=== PATIENT | female | born 1995 | race Caucasian/White ===

== ENCOUNTER 2019-06-07 03:05 | Inpatient (IN) | payer MEDICAID, SELFPAY | END 2019-06-08 12:35 | disposition home or self-care (01) | DRG 806 | PROVIDERS: Admitting Provider Obstetrics & Gynecology; Family Provider Nurse Practitioner Family; Visit Provider Obstetrics & Gynecology | DX: O34.211 Maternal care for low transverse scar from previous cesarean delivery (principal); O36.0930 Maternal care for other rhesus isoimmunization, third trimester, not applicable or unspecified; Z37.0 Single live birth; Z3A.38 38 weeks gestation of pregnancy; O99.334 Smoking (tobacco) complicating childbirth; F17.210 Nicotine dependence, cigarettes, uncomplicated; O69.2XX0 Labor and delivery complicated by other cord entanglement, with compression, not applicable or unspecified; O70.0 First degree perineal laceration during delivery ==

== ENCOUNTER → 2019-07-25 13:14 | Outpatient (BNVA) | payer MEDICAID, SELFPAY | PROVIDERS: Visit Provider Nurse Practitioner Women's Health | DX: Z30.430 Encounter for insertion of intrauterine contraceptive device (principal); Z30.9 Encounter for contraceptive management, unspecified | CPT/HCPCS: 81025 ==

== ENCOUNTER → 2020-05-07 14:15 | Outpatient (BNVA) | payer MEDICAID, SELFPAY | PROVIDERS: Visit Provider Nurse Practitioner | DX: Z30.431 Encounter for routine checking of intrauterine contraceptive device (principal); R30.9 Painful micturition, unspecified; R10.2 Pelvic and perineal pain | CPT/HCPCS: 81000; 81025 ==

== ENCOUNTER → 2020-08-09 13:52 | Outpatient (BNVA) | payer MEDICAID, SELFPAY | PROVIDERS: Visit Provider Obstetrics & Gynecology | DX: Z11.3 Encounter for screening for infections with a predominantly sexual mode of transmission (principal); Z34.90 Encounter for supervision of normal pregnancy, unspecified, unspecified trimester; R53.83 Other fatigue; Z48.816 Encounter for surgical aftercare following surgery on the genitourinary system | CPT/HCPCS: 84443; 86592; 86803; 87340; 87491; 87591; 87806 ==

== ENCOUNTER → 2020-12-27 15:52 | Outpatient (BNVA) | payer MEDICAID, SELFPAY | PROVIDERS: Visit Provider Nurse Practitioner Family | DX: Z20.822 Contact with and (suspected) exposure to COVID-19 (principal) | CPT/HCPCS: 87635 ==

== ENCOUNTER → 2021-01-25 18:18 | Outpatient (BNVA) | payer MEDICAID, SELFPAY | PROVIDERS: Visit Provider Registered Nurse Neonatal Intensive Care | DX: Z34.90 Encounter for supervision of normal pregnancy, unspecified, unspecified trimester (principal) | CPT/HCPCS: 81025 ==

== ENCOUNTER → 2021-09-14 15:00 | Outpatient (BNVA) | payer MEDICAID, SELFPAY | PROVIDERS: Visit Provider Obstetrics & Gynecology | DX: Z12.4 Encounter for screening for malignant neoplasm of cervix (principal); N64.52 Nipple discharge; N93.9 Abnormal uterine and vaginal bleeding, unspecified | CPT/HCPCS: 84146; 84443; 85027; 88104; 88175 ==

== ENCOUNTER 2021-09-21 12:33 | Outpatient (CLI) | payer MEDICAID, SELFPAY ==
--- NOTE | 2021-09-21 12:38 | US_ITS ---
WS: [id number] ULTRASOUND BILATERAL BREAST, complete HISTORY: N64.52 - Nipple discharge, clear white discharge. COMPARISON: None available. TECHNIQUE: 2-D and Doppler. Ultrasound is performed of each breast in all 4 quadrants. No masses or distortion is identified. The re is mild dense fibroglandular tissue. There is a small benign cyst at 9:00 in the LEFT breast with a maximum diameter of 5 mm. Small cyst RIGHT breast at the areola with a maximum diameter 3 mm. There are very minimally prominent ducts near the areola. No mass or ectasia or nodule within the ducts. US/US breast BI complete [id number] IMPRESSION: BI-RADS: 2-Benign FOLLOW-UP: See Report Bilateral breast ultrasound demonstrated no abnormality.
== END 2021-09-21 12:34 | disposition home or self-care (01) ==
LOC: RAD 12:35
PROVIDERS: Visit Provider Obstetrics & Gynecology
DX: N64.52 Nipple discharge (principal)
CPT/HCPCS: 76641

== ENCOUNTER → 2021-10-05 10:49 | Outpatient (BNVA) | payer MEDICAID, SELFPAY | PROVIDERS: Visit Provider Obstetrics & Gynecology | DX: N94.10 Unspecified dyspareunia (principal); N85.2 Hypertrophy of uterus; N85.4 Malposition of uterus; Z97.5 Presence of (intrauterine) contraceptive device | CPT/HCPCS: 76830 ==

== ENCOUNTER 2022-03-01 10:19 | Outpatient (CLI) | payer MEDICAID, SELFPAY ==
--- NOTE | 2022-03-01 10:23 | US_ITS ---
WS: [id number] TRANSABDOMINAL PELVIC AND TRANSVAGINAL PELVIC ULTRASOUND HISTORY: PELVIC PAIN COMPARISON: 10/05/2021 Uterus: 8.2 cm x 5.1 cm x 3.5 cm. Normal size anteverted uterus. No fibroid or mass. Endometrium: 0.4 cm. Normal size endometrium. IUD is present in satisfactory position. Strings are no bernard along the cervical canal. Right ovary: 3.5 cm x 2.5 cm x 2.4 cm. Normal size ovary. Normal vascularity. There are several small follicles but no solid mass. Left ovary: 3.9 cm x 2.8 cm x 1.7 cm. Normal size ovary. Ovary is only seen transabdominally. Small f ollicles. Normal vascularity. No free fluid. US/US pelvic with transvaginal IMPRESSION: 1. Normal position of the IUD. 2. Normal pelvic ultrasound. No abnormality identified.
== END 2022-03-01 10:20 | disposition home or self-care (01) ==
LOC: RAD 10:20
PROVIDERS: Visit Provider Nurse Practitioner Family
DX: R10.2 Pelvic and perineal pain (principal)
CPT/HCPCS: 76830; 76856

== ENCOUNTER → 2022-05-03 16:11 | Outpatient (BNVA) | payer MEDICAID, SELFPAY | PROVIDERS: Visit Provider Nurse Practitioner Family | DX: S69.92XA Unspecified injury of left wrist, hand and finger(s), initial encounter (principal); W19.XXXA Unspecified fall, initial encounter; Y93.51 Activity, roller skating (inline) and skateboarding | CPT/HCPCS: 73110 ==

== ENCOUNTER → 2023-01-29 15:38 | Outpatient (BNVA) | payer MEDICAID, SELFPAY | PROVIDERS: Visit Provider Nurse Practitioner Women's Health | DX: Z30.431 Encounter for routine checking of intrauterine contraceptive device (principal); R10.2 Pelvic and perineal pain | CPT/HCPCS: 76830 ==

== ENCOUNTER 2023-07-22 21:58 | Emergency (ER) | payer MEDICAID, SELFPAY ==
[2023-07-22 21:59] VITALS: BP 120/80; PULSE 84; RESP 16; TEMP 36.5; O2SAT 95; BMI 28.3
--- NOTE | 2023-07-22 22:16 | W.ED.ABDPA2 ---
HPI - Abdominal Pain General: Chief Complaint: Abdominal Pain Stated Complaint: Abd Pain Spread to Back and Chest Time Seen by Provider: 07/22/23 22:13 History of Present Illness: 27-year-old female comes in today with sharp abdominal pain radiating up into her chest that started this evening after eating with her reported fluid were getting ready to leave his mother's house. Patient reports that she has had problems with her abdomen on and off for about 1 year now. Patient has had 2 C-sections for delivery. Patient denies any other abdominal surgeries. Patient denies any chronic medical problems. Patient does have a 8-year implant for control. Patient appears nontoxic. Patient appears well. Review of Systems General: Reports: 10 or more systems reviewed and unremarkable except in HPI and below PFSH ED PFSH: Medical History (Updated 07/22/23 @ 23:05 by LESLY Hare) No pertinent past medical history Denies diabetes, asthma, hypertension, seizures, DVT/PE PCP: Lianne GRACE Surgical History H/O section (06/07/19) 1-----> primary low transverse delivery for breech presentation status post failed external cephalic version. No immediate postoperative complications. Done by Dr Barber at [facility] [place]. Low transverse uterine incision with single layer closure and no extension. Operative report has been scanned Family History Father Diabetes Cancer lung and bone Grandmother Ovarian cancer paternal, diagnosed in her 40s Sister Thyroid condition Mother Uterine cancer Uterine cancer in her mother is in her early 50s. Did receive chemotherapy and radiation. Denies family history of Colon cancer Heart disease Hyperlipidemia Breast cancer Hypertension Stroke Social History Smoking and tobacco/nicotine status: current every day tobacco/nicotine user cigarettes Packs smoked per day: 0.5 Years cigarettes smoked: 8 Second hand smoke exposure: No Alcohol intake: unknown Substance/Drug Use: unknown Physical Exam Const: COMMON NORMALS: alert HENMT: COMMON NORMALS: normocephalic HEAD & SCALP: normocephalic Neck/C-Spine: COMMON NORMALS: full ROM Chest: COMMONS NORMALS: normal inspection of the chest Resp: COMMON NORMALS: normal respiratory effort Cardio: COMMON NORMALS: regular rate and regular rhythm RATE: regular rate RHYTHM: regular rhythm GI: COMMON NORMALS: Soft to palpation PALPATION: Yes Soft to palpation, Yes Tenderness to palpation present (GI) (Nonlocalized) and No Guarding due to palpation present (GI) Extremity: COMMON NORMALS: full ROM Neuro: SENSORIUM/ORIENTATION: Yes alert Skin: COMMON NORMALS: turgor normal GENERAL SKIN EXAM: turgor normal Course Vital Signs: Vital signs: Vital Signs Temperature 97.7 F 07/22/23 21:59 Pulse Rate 105 H 07/22/23 22:34 Respiratory Rate 16 07/22/23 22:34 Blood Pressure 127/80 07/22/23 22:34 Pulse Oximetry 96 07/22/23 22:34 Oxygen Delivery Me thod Room Air 07/22/23 22:34 MDM - Abdominal Pain Medical Decision Making 27-year-old female comes in today with abdominal pain. Patient reports she was getting up to leave her boyfriend's mother's house when she had a sharp midepigastric pain that radiated to her back. Patient appears nontoxic. Abdomen soft with some mild tenderness but no localized or rebound tenderness. Lungs are clear to auscultation. Skin is warm and dry. Vital signs are stable. Differential diagnosis includes but not limited to GERD, gallbladder disease, pancreatitis, constipation. CBC was unremarkable. CMP noted some mild elevation alkaline phosphatase. Urinalysis was unremarkable. The patient probably has gallbladder colic. She described a gallbladder attack event I recommended following up with primary care for further evaluation and treatment. Return to the ER for worsening symptoms. Patient reported understanding agreed to plan. Lab Data 07/22/23 22:34 07/22/23 22:34 Labs/Radiology: Laboratory Results WBC 10.77 10^3/uL (3.29-11.43) 07/22/23 22:34 RBC 4.56 10^6/uL (3.85-5.65) 07/22/23 22:34 Hgb 14.60 g/dL (11.27-16.99) 07/22/23 22:34 Hct 43.6 % (36-47) 07/22/23 22:34 MCV 95.6 fl (85-98) 07/22/23 22:34 MCH 32.0 pg (27-33) 07/22/23:34 MCHC 33.5 g/dL (30-55) 07/22/23:34 RDW 12.3 % (12.1-15.1) 07/22/23:34 Plt Count 286 10^3/cmm (157-399) 07/22/23 22:34 MPV 9.2 fL (7.4-10.4) 07/22/23 22:34 Neut % (Auto) 63.7 % 07/22/23 22:34 Lymph % (Auto) 26.2 % 07/22/23:34 [place] % (Auto) 6.7 % 07/22/23: Eos % (Auto) 2.5 % 07/22/23:34 Baso % (Auto) 0.6 % 07/22/23: Neut # (Auto) 6.87 10^3/uL (1.8-7.7) 07/22/23: Lymph # (Auto) 2.8 10^3/uL (0.8-4.8) 07/22/23:34 [place] # (Auto) 0.7 10^3/uL (0.2-0.9) 07/22/23:34 Eos # (Auto) 0.3 10^3/uL (0.0-0.8) 07/22/23:34 Baso # (Auto) 0.1 10^3/uL (0.0-0.1) 07/22/23:34 Nucleated RBC % (auto) 0 % 07/22/23: Nucleated RBCs # 0.0 /100WBC 07/22/23 22:34 Sodium 140 mmol/L (136-145) 07/22/23 22:34 Potassium 4.1 mmol/L (3.5-5.1) 07/22/23:34 Chloride 105 mmol/L (98-107) 07/22/23 22:34 Carbon Dioxide 24 mmol/L (22-29) 07/22/23 22:34 Anion Gap 15.1 (5-19) 07/22/23 22:34 BUN 11 mg/dL (6-20) 07/22/23 22:34 Creatinine 0.8 mg/dL (0.5-0.9) 07/22/23 22:34 GFR Calculation 86.7 mL/min (90-130) L 07/22/23 22:34 Glucose 90 mg/dL (65-115) 07/22/23 22:34 Calculated Osmolality 289 mOsm/kg (285-295) 07/22/23 22:34 Calcium 9.5 mg/dL (8.5-10.5) 07/22/23 22:34 Total Bilirubin 0.2 mg/dL (0.15-1.2) 07/22/23 22:34 AST 14 U/L (0-32) 07/22/23 22:34 ALT 21 U/L (0-33) 07/22/23 22:34 Alkaline Phosphatase 113 U/L (35-105) H 07/22/23 22:34 Total Protein 7.0 g/dL (6.6-8.7) 07/22/23 22:34 Albumin 4.2 g/dL (3.5-5.2) 07/22/23 22:34 Globulin 2.8 g/dL (1.3-4.6) 07/22/23 22:34 Lipase 28 U/L (13-60) 07/22/23 22:34 HCG, Qual Negative (Negative) 07/22/23 22:34 Urine Color Yellow (Yellow) 07/22/23 22:25 Urine Appearance Hazy (CLEAR) A 07/22/23 22:25 Urine pH 6.5 (5-7) 07/22/23 22:25 Ur Specific [place] 1.010 (1.005-1.030) 07/22/23 22:25 Urine Protein Neg (Negative) 07/22/23 22:25 Urine Glucose (UA) Norm (Normal) 07/22/23 22: Urine Ketones Negative (Negative) 07/22/23 22: Urine Blood Neg (Negative) 07/22/23 22: Urine Nitrate Negative (Negative) 07/22/23 22:25 Urine Bilirubin Neg (Negative) 07/22/23 22: Urine Urobilinogen Norm mg/dL (Negative) 07/22/23 22:25 Ur Leukocyte Esterase Trace (Negative) H 07/22/23 22:25 Urine RBC 0-4 /hpf (0-2) H 07/22/23 22:25 Urine WBC 0-4 /hpf (0-5) H 07/22/23 22:25 Ur Squamous Epith Cells 5-10 /hpf (0-5) H 07/22/23 22:25 Amorphous Sediment Not Reportable 07/22/23 22:25 Urine Bacteria Trace /hpf (NONE) 07/22/23 22:25 No radiology studies performed this visit EKG Data EKG 1: I personally reviewed and interpreted this EKG as follows: EKG interpretation date: 07/22/23 EKG interpretation time: 22:45 Prior EKG tracings: not available for review Interpretation: Sinus rhythm, regular rate at [address] elevation or ectopy noted. No prior exam was available for comparison. Discharge Plan Discharge Patient Disposition: Home Clinical Impression: Gallbladder colic Condition: Stable Prescriptions: New dicyclomine 10 mg capsule 10 mg PO QID PRN (Reason: abdominal pain) Qty: 40 0RF No Action acetaminophen [Tylenol] 325 mg capsule 325 mg PO QID PRN Mirena 20 mcg/24 hours (5 yrs) 52 mg intrauterine device INTRAUTERI doxycycline hyclate 100 mg capsule 100 mg PO BID Qty: 20 0RF metronidazole 500 mg tablet 500 mg PO BID Qty: 14 0RF Discharge Orders: Discharge ED (Routine); Ordered 07/22/23 Ordered By: Hernandez Noonan Discharge Diet: Usual diet Discharge Activity: Increase activity as tolerated Patient Instructions: Abdominal Pain (ED) Activity Restrictions/Additional Instructions: Home and rest. Drink plenty of water and fluids. Clear liquid diet until abdominal pain resolves. Follow-up with primary care for further evaluation and treatment including ultrasound for gallbladder. Return to ED for new concerns such as high fever, blood in vomit or stool, or uncontrolled abdominal pain. Coding Level of Care Code ED Clinical Administrative Coordinator for Jovita Guerrero
--- NOTE | 2023-07-22 22:27 | ECG_ITS ---
[facility] Test Date: 2023-07-22 Pat Name: Denise Pedersen Department: Room: Gender: Female Media Coordinator: : 1995 Requested By: Hernandez Scott Order Number: [id number] Joshua MD: Montez Williamson M.D. Measurements Intervals [place] Rate: 95 P: 40 AK: 187 QRS: 79 QRSD: 88 T: 46 QT: 338 QTc: 425 Interpretive Statements SINUS RHYTHM POSSIBLE RIGHT VENTRICULAR CONDUCTION DELAY [RSR (QR) IN V1/V2] NONSPECIFIC T-WAVE ABNORMALITY No previous ECG available for comparison Electronically Signed On 07-23-2023 8:36:13 VALIDATION SCIENTIST by Montez Williamson M.D. [id number]
[2023-07-22 22:34] VITALS: BP 127/80; PULSE 105; RESP 16; O2SAT 96
[2023-07-22 22:36] LABS: Add Urine Microscopic? YES
[2023-07-22 22:37] LABS: Bacteria Urine TRACE /hpf; Bilirubin Urine Neg (Negative); Blood Urine Neg (Negative); Glucose Urine UA Norm (Normal); Ketones Urine Negative (Negative); Leukocyte Esterase Urine Trace (Negative); Nitrate Urine Negative (Negative); Protein Urine Neg (Negative); RBC Urine 0-4 /hpf (0-2); Urine Appearance Hazy (CLEAR); Urine Color Yellow (Yellow); Urobilinogen Urine Norm (Negative); WBC Urine 0-4 /hpf (0-5); pH Urine 6.5 (5-7)
[2023-07-22 22:44] LABS: Basophils # 0.1 10^3/uL (0.0-0.1); Basophils % 0.6 %; Eosinophils # 0.3 10^3/uL (0.0-0.8); Eosinophils % 2.5 %; Hematocrit 43.6 % (36-47); Lymphocytes # 2.8 10^3/uL (0.8-4.8); Lymphocytes % 26.2 %; Mean Corpuscular HGB Conc 33.5 g/dL (30-55); Mean Corpuscular Volume 95.6 fl (85-98); Mean Platelet Volume 9.2 fL (7.4-10.4); Monocytes # 0.7 10^3/uL (0.2-0.9); Monocytes % 6.7 %; Neutrophils # 6.87 10^3/uL (1.8-7.7); Neutrophils % 63.7 %; Nucleated Red Blood Cells % 0 %; Platelet Count 286 10^3/cmm (157-399); Red Blood Count 4.56 10^6/uL (3.85-5.65); Red Cell Distribution Width 12.3 % (12.1-15.1); White Blood Count 10.77 10^3/uL (3.29-11.43)
[2023-07-22 22:53] LABS: HCG, Serum Qual Negative (Negative)
[2023-07-22 23:02] LABS: Alanine Aminotransferase 21 U/L (0-33); Albumin Level 4.2 g/dL (3.5-5.2); Alkaline Phosphatase 113 U/L (35-105); Anion Gap 15.1 (5-19); Aspartate Amino Transferase 14 U/L (0-32); Blood Urea Nitrogen 11 mg/dL (6-20); Calcium 9.5 mg/dL (8.5-10.5); Carbon Dioxide 24 mmol/L (22-29); Chloride 105 mmol/L (98-107); Globulin 2.8 g/dL (1.3-4.6); Glomerular Filtration Rate 86.7 mL/min (90-130); Glucose 90 mg/dL (65-115); Lipase 28 U/L (13-60); Osmolality Calculated 289 mOsm/kg (285-295); Potassium 4.1 mmol/L (3.5-5.1); Sodium 140 mmol/L (136-145); Total Bilirubin 0.2 mg/dL (0.15-1.2)
[2023-07-22 23:20] VITALS: BP 112/74; PULSE 99; RESP 15
== END 2023-07-22 23:23 | disposition home or self-care (01) ==
PROVIDERS: Emergency Provider Nurse Practitioner Family
DX: K80.20 Calculus of gallbladder without cholecystitis without obstruction (principal); F17.210 Nicotine dependence, cigarettes, uncomplicated
CPT/HCPCS: 80053; 81001; 83690; 84703; 85025; 93005; 99284

== ENCOUNTER 2023-08-09 08:01 | Outpatient (CLI) | payer MEDICAID, SELFPAY ==
--- NOTE | 2023-08-09 08:08 | CT_ITS ---
WS: [id number] CT ABDOMEN AND PELVIS NONCONTRAST HISTORY: ABDOMINAL PAIN TECHNIQUE: Imaging performed through the abdomen and pelvis. Coronal and sagittal reformats are submi tted. All CT scans at [facility] use at least one of these dose optimization techniques: auto mated exposure control; mA and/or kV adjustment per patient size (includes targeted exams where dose is matched to clinical indication); or iterative reconstruction. DLP: 430.46 mGy.cm COMPARISON: None available. Lower thorax: Lung bases are clear. Visualized heart is normal. No hiatal hernia. Liver: Normal size liver. No mass or bile duct dilatation. Gallbladder: Normal gallbladder. No pericholecystic fluid or cholelithiasis. No gallbladder wall thic kening. Pancreas: Normal size and attenuation. Normal pancreatic duct. No pancreatitis or mass. Spleen: Normal. Adrenal glands: Normal. No mass. Right kidney: Normal size kidney with no mass or hydronephrosis. Left kidney: Normal size kidney with no mass or hydronephrosis. Aorta: Normal abdominal aorta, no aneurysm or atherosclerosis. No free fluid, intraperitoneal air or significant lymphadenopathy. GI tract: Normal noncontrast imaging of the stomach, small bowel and colon. No obstruction or wall th ickening. Normal appendix. Abdominal wall: Very small ventral abdominal wall hernia contains fat only. Pelvis: Normal. IUD appears normally positioned within the central endometrium. No adnexal masses. No free fluid. Negative urinary bladder. Osseous structures: Unremarkable. IMPRESSION: 1. No acute abdominal or pelvic abnormalities. 2. No GI strictures or dilatation. No mucosal edema or obstruction.
== END 2023-08-09 08:02 | disposition home or self-care (01) ==
LOC: RAD 08:01
PROVIDERS: PCP Nurse Practitioner Family; Visit Provider Nurse Practitioner Family
DX: R10.9 Unspecified abdominal pain (principal)
CPT/HCPCS: 74176

== ENCOUNTER 2023-12-09 17:59 | Emergency (ER) | payer MEDICAID, SELFPAY ==
[2023-12-09 18:06] VITALS: BP 117/75; PULSE 74; RESP 17; TEMP 36.6; O2SAT 99; BMI 27.4
--- NOTE | 2023-12-09 18:58 | ED_ITS ---
HPI - Skin/Abscess/Foreign Bdy General: Chief complaint: Skin/Abscess/Foreign Body Stated complaint: Unable to eat Time Seen by Provider: 12/09/23 18:13 History of Present Illness: 28-year-old female with fibrocystic lurdes st disease history. She notes a tender hard area to her right breast that has become more tender, more warm, and more inflamed since yesterday morning. She meant to come in last night, but had a busy day. She wonders if she got too hot yesterday on the sun because she was outside most of the day. She has been feeling achy, and feverish, and has not wanted to eat. She is not vomiting. No documented fever. Associated symptoms: Reports chills and fever(s); Deny vomiting Review of Systems Const: Reports: fever(s), chills, body aches, change in appetite and fatigue; Denies: night sweats ENMT: Denies: throat pain Card: Denies: chest pain Resp: Denies: dyspnea GI: Denies: abdominal pain or vomiting Skin/Breast: Reports: skin pain and skin tenderness PFSH ED PFSH: Medical History No pertinent past medical history Denies diabetes, asthma, hypertension, seizures, DVT/PE PCP: Lianne GRACE Surgical History H/O section (06/07/19) 1-----> primary low transverse delivery for breech presentation status post failed external cephalic version. No immediate postoperative complications. Done [place] Dr Barber [place] [facility] [place] Low transverse uterine incision with single layer closure and no extension. Operative report has been scanned Family History Father Diabetes Cancer lung and bone Grandmother Ovarian cancer paternal, diagnosed in her 40s Sister Thyroid condition Mother Uterine cancer Uterine cancer in her mother is in her early 50s. Did receive chemotherapy and radiation. Denies family history of Colon cancer Heart disease Hyperlipidemia Breast cancer Hypertension Stroke Social History Smoking and tobacco/nicotine status: current every day tobacco/nicotine user cigarettes Packs smoked per day: 0.5 Years cigarettes smoked: 8 Second hand smoke exposure: No Alcohol intake: unknown Substance/Drug Use: unknown Physical Exam Const: COMMON NORMALS: no acute distress GENERAL APPEARANCE: cooperative; not ill appearing and not frail appearing HENMT: COMMON NORMALS: normocephalic, atraumatic and Normal external nose present HEAD & SCALP: normocephalic and atraumatic FACE & SINUS: normal facial exam and face symmetric NOSE: Normal external nose present Eye: COMMON NORMALS: Equal, round and reactive pupils present and EOMs intact bilaterally PUPIL: Yes Equal, round and reactive pupils present Neck/C-Spine: GENERAL: Yes trachea midline Chest: CHEST: Yes Symmetrical chest wall rise Breast/axilla inspection: Yes abnormal inspection of the breast OTHER: Exam of the right breast reveals a tender indurated area near the 11 o'clock position. There are some generalized breast tenderness otherwise, but the breast tissue is soft otherwise. No streaking redness. Mild redness over the area of tenderness. No nipple leakage or drainage. No significant deformity. Resp: COMMON NORMALS: normal respiratory effort, No retractions and No use of accessory muscles Cardio: COMMON NORMALS: regular rate and regular rhythm RATE: regular rate RHYTHM: regular rhythm GI: COMMON NORMALS: Normal to inspection, nondistended, normoactive bowel sounds present Extremity: COMMON NORMALS: no pedal edema Neuro: ROBIN COMA SCALE: document GCS findings [place] coma scale eye open ing: Spontaneous [place] coma scale verbal response: Orientated Robin coma scale motor response: Obey commands [place] coma scale total score: 15 SENSORY EXAM: Yes extremities (intact) Psych: COMMON NORMALS: speech normal SPEECH: Yes normal speech Skin: COMMON NORMALS: no rashes or lesions noted GENERAL SKIN EXAM: no rashes or lesions noted Course Vital Signs: Vital signs: Vital Signs Temperature 97.8 F 12/09/23 18:06 Pulse Rate 79 12/09/23 19:13 Respiratory Rate 16 12/09/23 19:13 Blood Pressure 121/74 12/09/23 19:13 Pulse Oximetry 98 12/09/23 19:13 Oxygen Delivery Me thod Room Air 12/09/23 18:06 MDM - Skin/Abscess/Foreign Bdy Medicial Decision Making Tender indurated area to the 11 o'clock position in the right breast tissue. Bedside ultrasound does not reveal an abscess formation. She will be treated with doxycycline. 1 dose of steroids here for localized inflammation. She was told to hydrate yourself with water for the next couple of days, to take medication as directed. To stay out of the heat. Return precautions given and understood. No radiology studies performed this visit Discharge Plan Discharge Patient Disposition: Home Clinical Impression: Mastitis without abscess Condition: Stable Prescriptions: New doxycycline hyclate 100 mg tablet 100 mg PO BID 14 Days Qty: 28 0RF No Action acetaminophen [Tylenol] 325 mg capsule 325 mg PO QID PRN Mirena 20 mcg/24 hours (5 yrs) 52 mg intrauterine device INTRAUTERI amoxicillin 500 mg tablet 500 mg PO BID 10 Days Qty: 20 0RF Discharge Orders: Discharge ED (Routine); Ordered 12/09/23 Ordered By: Alexsander Mccullough Referrals: Lianne Jiang FNP [Primary Care Provider] - 4-7 days Patient Instructions: Mastitis (ED), Opioid Safety, Pain Management Activity Restrictions/Additional Instructions: Antibiotic as directed. Stay out of the heat for the next 48 hours at least. Hydrate yourself. Gentle moist heat may help relieve discomfort, and soften the tissue. Return for worsening pain despite treatment, spreading redness or swelling despite treatment, leakage or drainage, fever despite 2-3 more doses of antibiotics, other concerning symptoms. See your doctor this week. Stand Alone Forms: Work/School Release Coding Level of Care Code ED Hot Billet Shear Operator for Jovita Guerrero
[2023-12-09] MEDS: dexamethasone 4 mg Tablet 10 MG PO (19:12)
[2023-12-09] MEDS: HYDROcodone-acetaminophen 5-325 mg Tablet 2 TAB PO (19:12)
[2023-12-09] MEDS: doxycycline 100 mg Tablet PO (19:12)
[2023-12-09 19:13] VITALS: BP 121/74; PULSE 79; RESP 16; O2SAT 98
== END 2023-12-09 19:13 | disposition home or self-care (01) ==
PROVIDERS: Emergency Provider Emergency Medicine; PCP Nurse Practitioner Family
DX: N61.0 Mastitis without abscess (principal); F17.210 Nicotine dependence, cigarettes, uncomplicated
CPT/HCPCS: 99283; J8540

== ENCOUNTER → 2025-05-27 12:20 | Outpatient (BNVA) | payer OTHER, SELFPAY | PROVIDERS: PCP Nurse Practitioner Family; Visit Provider Nurse Practitioner Women's Health | DX: Z00.00 Encounter for general adult medical examination without abnormal findings (principal); Z11.3 Encounter for screening for infections with a predominantly sexual mode of transmission; Z12.4 Encounter for screening for malignant neoplasm of cervix | CPT/HCPCS: 86592; 86706; 86803; 87340; 87491; 87591; 87661; 87806; 88175 ==